=== PATIENT | male | born 2000 | race Caucasian/White ===

== ENCOUNTER 2021-01-04 14:13 | Emergency (ER) | payer OTHER ==
[~2021-01-04] VITALS: Ht 193 cm; Wt 77.0 kg
[2021-01-04] MEDS ORDERED: LIDOcaine 1% W/epiNEPHrine 1:200,000 10ml vial IJ ONE ×2 (15:00→15:55)
[2021-01-04] MEDS ORDERED: TRAM50TA2 PO (15:52)
[2021-01-04] MEDS ORDERED: CEPH-585 PO (15:52)
[2021-01-04] MEDS ORDERED: TETanus/Pertussis (Acell)/Diphther VAC/PF (Tdap-Adult) 0.5ml syringe IMVAC ONE (15:55)
--- NOTE | 2021-01-04 16:40 | NUR ---
Md Beck at bedside for sutures. Pt tolerated. Denies pain
[2021-01-04 17:29] VITALS: BP 124/62
--- NOTE | 2021-01-04 17:32 | NUR ---
Dressing in place, Telfa and steffi. Crutches education given to pt. Verbalize understanding.
== END 2021-01-04 17:25 | disposition home or self-care (01) ==
LOC: ER 14:14
DX: S81.812A Laceration without foreign body, left lower leg, initial encounter (principal); Z20.3 Contact with and (suspected) exposure to rabies; Z79.2 Long term (current) use of antibiotics; Z79.899 Other long term (current) drug therapy; X58.XXXA Exposure to other specified factors, initial encounter; Y93.89 Activity, other specified; Y92.89 Other specified places as the place of occurrence of the external cause; Y99.8 Other external cause status
CPT/HCPCS: 12002; 73590; 90471; 90715; 99283